=== PATIENT | female | born 1935 | race African-American/Black ===

== ENCOUNTER 2016-11-06 23:36 | Inpatient (IN) | payer MEDICARE, MEDICAID ==
[~2016-11-06] VITALS: Ht 157.5 cm; Wt 66.2 kg
[2016-11-07] MEDS ORDERED: SODIUM CHLORIDE 0.9% 1000ML BAG (SEPSIS BOLUS) IV ONE
[2016-11-07 00:39] LABS: BASOPHILS % 0.6 % (0.0-2.0); EOSINOPHILS % 0.6 % (0.0-5.0); HEMATOCRIT. 37.4 % (36.0-48.0); HEMOGLOBIN. 12.6 g/dL (12.0-16.0); LYMPHOCYTES % 17.7 % (20.0-50.0); MEAN CORPUSCULAR HEMOGLOBIN 29.2 pg (28.0-32.0); MEAN CORPUSCULAR VOLUME 86.9 fL (81.0-99.0); MEAN PLATELET VOLUME 7.7 fl (7.4-10.4); MONOCYTES % 11.3 % (2.0-8.0); NEUTROPHILS % 69.8 % (40.0-76.0); PLATELET 345 x1000/uL (130-400); RED BLOOD CELL COUNT 4.31 mill/uL (4.2-5.4); RED CELL DISTRIBUTION WIDTH 14.2 % (11.6-14.6)
[2016-11-07 00:47] LABS: INR 1.1; PROTHROMBIN TIME 11.5 sec
[2016-11-07 00:57] LABS: CARBON DIOXIDE 25 mEq/L (21-32); CHLORIDE 106 mEq/L (98-107); CREATINE KINASE 266 IU/L (26-192); TROPONIN I < 0.02 ng/mL (0.00-0.04)
[2016-11-07 01:08] LABS: CLARITY URINE CLOUDY (CLEAR); COLOR URINE YELLOW (YELLOW); GLUCOSE URINE NEGATIVE (NEGATIVE); KETONES URINE 1+ (NEGATIVE); LEUKOCYTE ESTERASE URINE NEGATIVE (NEGATIVE); NITRITE URINE NEGATIVE (NEGATIVE); OCCULT BLOOD URINE TRACE (NEGATIVE); PROTEIN URINE TRACE (NEGATIVE); SPECIFIC GRAVITY URINE 1.026 (1.005-1.030)
[2016-11-07 08:30] VITALS: BP 132/62
[2016-11-07 09:09] VITALS: BP 133/62
[2016-11-07 12:00] VITALS: BP 151/74
[2016-11-07] MEDS ORDERED: ONDANSETRON HCL 4MG/2ML VIAL IV PRN ×2 (12:30→15:15)
[2016-11-07] MEDS ORDERED: DIPHENHYDRAMINE 50MG/ML VIAL IV PRN (12:30)
[2016-11-07] MEDS ORDERED: IPRATROPIUM/ALBUTEROL 0.5-3(2.5)MG/3ML NEB INH PRN (12:30)
[2016-11-07] MEDS ORDERED: CLONIDINE 0.1MG TABLET PO PRN (12:30)
[2016-11-07] MEDS ORDERED: HYDROCODONE/ACETAMINOPHEN 5/325MG TABLET PO PRN (12:30)
[2016-11-07] MEDS ORDERED: ACETAMINOPHEN 325MG TABLET PO PRN (12:30)
[2016-11-07] MEDS: SODIUM CHLORIDE 0.9% 1,000 ML IV SCH ×2 (12:39→20:51)
[2016-11-07] MEDS: PANTOPRAZOLE SODIUM 40 MG/VIAL IV SCH (12:39)
[2016-11-07 14:08] LABS: CLARITY URINE TURBID (CLEAR); COLOR URINE YELLOW (YELLOW); GLUCOSE URINE NEGATIVE (NEGATIVE); KETONES URINE 1+ (NEGATIVE); LEUKOCYTE ESTERASE URINE 2+ (NEGATIVE); NITRITE URINE NEGATIVE (NEGATIVE); OCCULT BLOOD URINE 1+ (NEGATIVE); PROTEIN URINE NEGATIVE (NEGATIVE); SPECIFIC GRAVITY URINE 1.019 (1.005-1.030); UROBILINOGEN URINE 0.2 E.U./dL (0.2-1.0)
[2016-11-07] MEDS ORDERED: BACITRACIN 50,000 UNITS/VIAL ONE (15:16)
[2016-11-07] MEDS ORDERED: VANCOMYCIN HCL 500 MG/VIAL ONE (15:16)
[2016-11-07] MEDS ORDERED: ROCURONIUM BROMIDE 10MG/ML VIAL 5ML IV ONE (15:27)
[2016-11-07] MEDS ORDERED: FENTANYL CITRATE/PF 50MCG/ML 2ML VIAL ONE (15:27)
[2016-11-07] MEDS ORDERED: PROPOFOL 200MG/20ML VIAL IV ONE (15:27)
[2016-11-07] MEDS ORDERED: SUCCINYLCHOLINE CHLORIDE 200MG/10ML VIAL IV ONE (15:27)
[2016-11-07] MEDS ORDERED: LIDOCAINE HCL 1% 20ML VIAL (Pyxis) INJ ONE (15:27)
[2016-11-07] MEDS ORDERED: CEFAZOLIN SODIUM 1000MG/VIAL ONE (16:15)
[2016-11-07] MEDS ORDERED: SODIUM CHLORIDE 0.9% 10ML VIAL ONE (16:16)
[2016-11-07] MEDS ORDERED: ONDANSETRON HCL 4MG/2ML VIAL ONE (17:52)
[2016-11-07] MEDS ORDERED: GLYCOPYRROLATE 0.2 MG/ML 2ML VIAL ONE (18:02)
[2016-11-07] MEDS ORDERED: NEOSTIGMINE METHYLSULFATE 1MG/ML 10 ML VIAL ONE (18:02)
[2016-11-07] MEDS ORDERED: HYDRALAZINE 20MG/ML VIAL ONE (18:30)
[2016-11-07] MEDS: HYDROMORPHONE HCL/PF 2MG/ML CPJ IV PRN ×5 (18:36→18:59)
[2016-11-07] MEDS ORDERED: HYDRALAZINE 20MG/ML VIAL IV PRN (18:45)
[2016-11-07 20:00] VITALS: BP 129/68
[2016-11-07] MEDS: CEFTRIAXONE 1 G PREMIX 50 ML IV SCH (20:51)
[2016-11-08] VITALS: BP 121/63
[2016-11-08] MEDS: MORPHINE SULFATE 2 MG/ML CPJ (NOT FOR IM USE) IV PRN ×3 (01:22→20:16)
[2016-11-08 04:00] VITALS: BP 121/63
[2016-11-08] MEDS ORDERED: CEFAZOLIN 500MG in DEXTROSE 5% WATER 50ML IV SCH (05:00)
[2016-11-08] MEDS ORDERED: CEFAZOLIN 1000MG PREMIX 50 ML IV SCH (05:00)
[2016-11-08 08:00] VITALS: BP 107/48
[2016-11-08 08:07] LABS: BASOPHILS % 0.4 % (0.0-2.0); EOSINOPHILS % 0.3 % (0.0-5.0); HEMATOCRIT. 32.6 % (36.0-48.0); HEMOGLOBIN. 10.5 g/dL (12.0-16.0); LYMPHOCYTES % 12.3 % (20.0-50.0); MEAN CORPUSCULAR HEMOGLOBIN 28.4 pg (28.0-32.0); MEAN CORPUSCULAR VOLUME 88.5 fL (81.0-99.0); MEAN PLATELET VOLUME 7.9 fl (7.4-10.4); MONOCYTES % 9.1 % (2.0-8.0); NEUTROPHILS % 77.9 % (40.0-76.0); PLATELET 291 x1000/uL (130-400); RED BLOOD CELL COUNT 3.69 mill/uL (4.2-5.4); RED CELL DISTRIBUTION WIDTH 14.4 % (11.6-14.6)
[2016-11-08 08:35] LABS: CARBON DIOXIDE 22 mEq/L (21-32); CHLORIDE 114 mEq/L (98-107); HDL CHOLESTEROL 38 mg/dL (40-59); LDL CHOLESTEROL 181 mg/dL (5-100)
[2016-11-08] MEDS: CEFTRIAXONE 1 G PREMIX 50 ML IV SCH (08:40)
[2016-11-08] MEDS: PANTOPRAZOLE SODIUM 40 MG/VIAL IV SCH (08:40)
[2016-11-08 12:00] VITALS: BP 119/65
[2016-11-08 16:00] VITALS: BP 102/42
[2016-11-08] MEDS: SODIUM CHLORIDE 0.9% 1,000 ML IV SCH (16:52)
[2016-11-08] MEDS: CEFAZOLIN 1000MG PREMIX 50 ML IV SCH (17:12)
[2016-11-08 20:00] VITALS: BP 118/57
[2016-11-08] MEDS ORDERED: ATORVASTATIN CALCIUM 20MG TABLET PO SCH ×2 (21:00)
[2016-11-09] VITALS (7 sets, daily range): BP systolic 114–133; BP diastolic 56–64
[2016-11-09] MEDS: CEFAZOLIN 1000MG PREMIX 50 ML IV SCH ×2 (01:04→10:39)
[2016-11-09] MEDS: MORPHINE SULFATE 2 MG/ML CPJ (NOT FOR IM USE) IV PRN ×3 (03:46→14:17)
[2016-11-09 06:34] LABS: BASOPHILS % 0.7 % (0.0-2.0); EOSINOPHILS % 0.7 % (0.0-5.0); HEMATOCRIT. 28.7 % (36.0-48.0); HEMOGLOBIN. 9.7 g/dL (12.0-16.0); LYMPHOCYTES % 14.4 % (20.0-50.0); MEAN CORPUSCULAR HEMOGLOBIN 29.3 pg (28.0-32.0); MONOCYTES % 8.5 % (2.0-8.0); NEUTROPHILS % 75.7 % (40.0-76.0); PLATELET 232 x1000/uL (130-400); RED CELL DISTRIBUTION WIDTH 14.1 % (11.6-14.6)
[2016-11-09 07:13] LABS: CARBON DIOXIDE 26 mEq/L (21-32); CHLORIDE 109 mEq/L (98-107); TROPONIN I < 0.02 ng/mL (0.00-0.04)
[2016-11-09] MEDS ORDERED: FAMOTIDINE 20MG TABLET PO SCH (09:00)
[2016-11-09] MEDS: SODIUM CHLORIDE 0.9% 1,000 ML IV SCH (14:19)
[2016-11-09] MEDS ORDERED: POTASSIUM CHLORIDE 20MEQ TABLET SR PO NR (16:15)
== END 2016-11-09 20:00 | DRG 469 ==
LOC: ER 23:36 → 5WST 11-07 02:47 → ENRESERV 11-07 07:20
PROVIDERS: ADMIT Internal Medicine; ATTEND Internal Medicine
PROC: 0SRR0J9 Replacement of Right Hip Joint, Femoral Surface with Synthetic Substitute, Cemented, Open Approach (ICD-10-PCS; principal; 2016-11-07 15:30)
DX: S72.011A Unspecified intracapsular fracture of right femur, initial encounter for closed fracture (principal); G93.40 Encephalopathy, unspecified; M62.82 Rhabdomyolysis; N39.0 Urinary tract infection, site not specified; E87.0 Hyperosmolality and hypernatremia; I11.9 Hypertensive heart disease without heart failure; D64.9 Anemia, unspecified; E78.5 Hyperlipidemia, unspecified; E87.6 Hypokalemia; F03.90 Unspecified dementia, unspecified severity, without behavioral disturbance, psychotic disturbance, mood disturbance, and anxiety; I08.0 Rheumatic disorders of both mitral and aortic valves; W01.0XXA Fall on same level from slipping, tripping and stumbling without subsequent striking against object, initial encounter; Y93.89 Activity, other specified; Y92.098 Other place in other non-institutional residence as the place of occurrence of the external cause; Y99.8 Other external cause status
CPT/HCPCS: 36415; 70450; 71010; 72170; 72192; 73502; 73562; 80048; 80053; 80061; 81001; 82550; 82962; 83605; 83735; 84484; 85025; 85610; 87040; 87086; 88305; 88311; 93005; 93306; 96360; 96361; 97162; 97530; 99285; A4216; C1713; C1776; C9113; J0330; J0360; J0690; J0696; J1170; J1200; J2270; J2405; J2704; J2710; J3010; J3370; J3490; J7030; J7060; A4315

== ENCOUNTER 2017-01-24 20:20 | Inpatient (IN) | payer MEDICARE, MEDICAID ==
[~2017-01-24] VITALS: Ht 160 cm; Wt 61.7 kg
[2017-01-24 20:00] VITALS: BP 160/75
[2017-01-24 21:00] VITALS: BP 160/79
[2017-01-24] MEDS ORDERED: ZOLPIDEM TARTRATE 5MG TABLET PO PRN (22:30)
[2017-01-24] MEDS ORDERED: AMLODIPINE 5MG TABLET PO NR (22:30)
[2017-01-24] MEDS ORDERED: ACETAMINOPHEN 325MG TABLET PO PRN (22:30)
[2017-01-24 23:22] LABS: EOSINOPHILS % 2.2 % (0.0-5.0); HEMATOCRIT. 33.5 % (36.0-48.0); HEMOGLOBIN. 11.1 g/dL (12.0-16.0); LYMPHOCYTES % 40.1 % (20.0-50.0); MEAN CORPUSCULAR HEMOGLOBIN 28.1 pg (28.0-32.0); MEAN CORPUSCULAR VOLUME 85.1 fL (81.0-99.0); MEAN PLATELET VOLUME 7.6 fl (7.4-10.4); MONOCYTES % 9.2 % (2.0-8.0); NEUTROPHILS % 47.5 % (40.0-76.0); PLATELET 377 x1000/uL (130-400); RED BLOOD CELL COUNT 3.94 mill/uL (4.2-5.4); RED CELL DISTRIBUTION WIDTH 15.7 % (11.6-14.6)
[2017-01-24 23:30] LABS: PARTIAL THROMBOPLASTIN TIME 29.6 sec (23.4-31.0); PROTHROMBIN TIME 10.7 sec (9.4-11.6)
[2017-01-24 23:32] LABS: CARBON DIOXIDE 28 mEq/L (21-32); CHLORIDE 105 mEq/L (98-107)
[2017-01-25] VITALS: BP 179/100
[2017-01-25 04:00] VITALS: BP 155/65
[2017-01-25] MEDS ORDERED: DOCU-150 PO (05:39)
[2017-01-25] MEDS ORDERED: [UNRECOGNIZED DRUG - CODE] PO (05:42)
[2017-01-25] MEDS ORDERED: DULO60CA44 PO (05:42)
[2017-01-25] MEDS ORDERED: ATOR20TA65 PO (05:42)
[2017-01-25] MEDS ORDERED: MULT-1146 PO (05:42)
[2017-01-25 08:00] VITALS: BP 152/64
[2017-01-25] MEDS: DULOXETINE HCL 60MG DR CAPSULE PO SCH (08:33)
[2017-01-25] MEDS: AMLODIPINE 5MG TABLET PO SCH (08:36)
[2017-01-25 12:00] VITALS: BP 139/63
[2017-01-25 15:55] VITALS: BP 144/65
[2017-01-25 20:00] VITALS: BP 149/69
[2017-01-25] MEDS: ATORVASTATIN CALCIUM 20MG TABLET PO SCH (21:00)
[2017-01-25] MEDS ORDERED: POTASSIUM CHLORIDE 20MEQ TABLET SR PO NR (22:30)
[2017-01-26] VITALS: BP 158/72
[2017-01-26 04:00] VITALS: BP 142/61
[2017-01-26 07:54] LABS: BASOPHILS % 2.1 % (0.0-2.0); EOSINOPHILS % 2.1 % (0.0-5.0); HEMATOCRIT. 35.6 % (36.0-48.0); HEMOGLOBIN. 11.8 g/dL (12.0-16.0); MEAN CORPUSCULAR HEMOGLOBIN 28.3 pg (28.0-32.0); MEAN CORPUSCULAR VOLUME 85.1 fL (81.0-99.0); MEAN PLATELET VOLUME 8.3 fl (7.4-10.4); MONOCYTES % 11.5 % (2.0-8.0); NEUTROPHILS % 50.3 % (40.0-76.0); PLATELET 407 x1000/uL (130-400); RED BLOOD CELL COUNT 4.18 mill/uL (4.2-5.4); RED CELL DISTRIBUTION WIDTH 15.7 % (11.6-14.6)
[2017-01-26 08:00] VITALS: BP 138/66
[2017-01-26] MEDS: DULOXETINE HCL 60MG DR CAPSULE PO SCH (08:50)
[2017-01-26] MEDS: AMLODIPINE 5MG TABLET PO SCH (08:50)
[2017-01-26 08:54] LABS: T4 FREE 1.02 ng/dL (0.76-1.46)
[2017-01-26 12:00] VITALS: BP 158/87
[2017-01-26 16:00] VITALS: BP 141/62
[2017-01-26] MEDS ORDERED: MAGNESIUM CITRATE 300ML SOLUTION PO PRN (16:45)
[2017-01-26] MEDS: DOCUSATE SODIUM 100MG CAPSULE PO SCH (18:30)
[2017-01-26 20:00] VITALS: BP 129/62
[2017-01-26] MEDS: ATORVASTATIN CALCIUM 20MG TABLET PO SCH (22:22)
[2017-01-27] VITALS: BP 148/85
[2017-01-27 04:00] VITALS: BP 131/57
[2017-01-27 08:00] VITALS: BP 130/59
[2017-01-27] MEDS: DOCUSATE SODIUM 100MG CAPSULE PO SCH ×2 (09:06→16:50)
[2017-01-27] MEDS: AMLODIPINE 5MG TABLET PO SCH (09:06)
[2017-01-27] MEDS: DULOXETINE HCL 60MG DR CAPSULE PO SCH (09:07)
[2017-01-27 12:00] VITALS: BP 127/61
[2017-01-27] MEDS ORDERED: NA PHOS,M-B/NA PHOS,DI-BA ENEMA 118ML PR NR (12:15)
[2017-01-27 14:35] VITALS: BP 127/61
[2017-01-27 16:27] VITALS: BP 161/69
== END 2017-01-27 17:58 | DRG 392 ==
LOC: 8WST 20:20
PROVIDERS: ADMIT Internal Medicine; ATTEND Internal Medicine
DX: R19.5 Other fecal abnormalities (principal); I11.9 Hypertensive heart disease without heart failure; F01.50 Vascular dementia, unspecified severity, without behavioral disturbance, psychotic disturbance, mood disturbance, and anxiety; R13.10 Dysphagia, unspecified; Z96.652 Presence of left artificial knee joint; D25.9 Leiomyoma of uterus, unspecified; M17.12 Unilateral primary osteoarthritis, left knee; F17.200 Nicotine dependence, unspecified, uncomplicated; Z90.710 Acquired absence of both cervix and uterus
CPT/HCPCS: 36415; 71010; 74000; 74176; 80048; 82270; 82378; 83036; 84439; 84443; 84481; 84550; 85025; 85610; 85651; 85730; 86677; 87493; 93970